=== PATIENT | female | born 1940 | race Caucasian/White ===

== ENCOUNTER 2019-04-16 10:41 | Outpatient (CLI) | payer MEDICARE, MEDICAID, SELFPAY ==
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
== END 2019-04-16 10:42 | disposition home or self-care (01) ==
LOC: RADOUTREAD 12:30
PROVIDERS: Family Provider Electrodiagnostic Medicine; Visit Provider Nurse Practitioner Family
DX: Z76.89 Persons encountering health services in other specified circumstances (principal)

== ENCOUNTER 2019-05-01 16:26 | Emergency (ER) | payer MEDICARE, MEDICAID, SELFPAY ==
[2019-05-01 16:33] VITALS: BP 144/105; PULSE 89; RESP 16; TEMP 36.3; O2SAT 98; BMI 23.8
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
--- NOTE | 2019-05-01 16:46 | ECG_ITS ---
Measurements Intervals [place] Rate: 79 P: 64 TX: 196 QRS: 21 QRSD: 93 T: 62 QT: 371 QTc: 425 SINUS RHYTHM WITH SINUS ARRHYTHMIA Compared to ECG 08/06/2018 12:14:23 No significant changes Electronically Signed On 05-01-2019 22:17:25 SPEEDER MACHINE OPERATOR by Rajesh Stern M.D. [id number]
[2019-05-01 17:22] LABS: Basophils % 0.3 %; Eosinophils # 0.4 10^3/uL (0.0-0.8); Eosinophils % 4.5 %; Hemoglobin 14.5 g/dL (11.5-15.3); Lymphocytes % 25.3 %; Mean Corpuscular HGB Conc 32.2 g/dL (30.0-36.0); Mean Corpuscular Hemoglobin 30.2 pg (28.0-34.0); Mean Corpuscular Volume 93.8 fL (81-99); Mean Platelet Volume 10.1 fL (7.4-10.4); Monocytes # 0.6 10^3/uL (0.2-0.9); Monocytes % 7.4 %; Neutrophils # 4.9 10^3/uL (1.8-7.7); Neutrophils % 62.1 %; Nucleated Red Blood Cells % 0 %; Platelet Count 236 10^3/cmm (130-400); Red Cell Distribution Width 13.9 % (12.1-15.1); White Blood Count 7.9 10^3/uL (4.0-10.0)
[2019-05-01 17:23] LABS: Add Urine Microscopic? NO
[2019-05-01 17:25] LABS: Urine Appearance Clear (CLEAR); Urine Color Yellow (Yellow); pH Urine 5 (5-7)
[2019-05-01 17:26] LABS: Bilirubin Urine Neg (NEGATIVE); Blood Urine Neg (Negative); Glucose Urine UA Norm (Normal); Ketones Urine Negative (Negative); Leukocyte Esterase Urine Negative (Negative); Nitrate Urine Negative (Negative); Protein Urine Neg (Negative); Urobilinogen Urine Norm (Negative)
[2019-05-01 17:40] LABS: Amphetamines Screen Urine Negative (Negative); Barbiturates Screen Urine Negative (Negative); Benzodiazepines Screen Urine Negative (Negative); Cocaine Screen Urine Negative (Negative); Opiate Screen Urine Negative (Negative); PCP Screen Urine Negative (Negative); THC Screen Urine Negative (Negative)
[2019-05-01 17:50] LABS: Lithium 0.1 mmol/L (0.6-1.2)
--- NOTE | 2019-05-01 17:53 | PC.NURSE ---
1:1 sitter at bedside
[2019-05-01 18:01] LABS: Alanine Aminotransferase 22 U/L (0-33); Albumin Level 4.3 g/dL (3.5-5.2); Alkaline Phosphatase 128 IU/L (35-105); Anion Gap 13.2 (5-19); Aspartate Amino Transferase 29 U/L (0-32); Blood Urea Nitrogen 18 mg/dL (8-23); Calcium 10.1 mg/dL (8.5-10.5); Carbon Dioxide 26 mmol/L (22-29); Chloride 108 mmol/L (98-107); Globulin 2.8 g/dL (1.3-4.6); Glucose 109 mg/dL (65-115); Potassium 4.2 mmol/L (3.5-5.1); Sodium 143 mmol/L (136-145); Thyroid Stimulating Hormone 2.46 uIU/mL (0.27-4.20); Total Bilirubin 0.2 mg/dL (0.15-1.2); Total Protein 7.1 g/dL (6.6-8.7)
[2019-05-01 18:22] LABS: Acetaminophen < 5.0 ug/mL (10-30); Alcohol Level < 10 mg/dL (0-10); Salicylate < 0.3 mg/dL (3-10)
[2019-05-01 19:40] VITALS: BP 139/106; PULSE 90; RESP 18; O2SAT 94
--- NOTE | 2019-05-01 19:47 | PC.NURSE ---
Patient resting in bed with daughter at bedside. 1:1 sitter at bedside.
--- NOTE | 2019-05-01 20:06 | PC.NURSE ---
Patient sleeping. Daughter and 1:1 sitter at bedside.
[2019-05-01 21:01] VITALS: BP 118/68; PULSE 90; RESP 18; TEMP 36.2; O2SAT 98
[2019-05-01 21:19] LABS: Vitamin B12 598 pg/mL (232-1245)
--- NOTE | 2019-05-01 21:53 | PC.NURSE ---
Calling [facility] ems for transport at this time.
[2019-05-01 22:00] VITALS: BP 113/73; PULSE 85; RESP 18; O2SAT 94
== END 2019-05-01 23:13 ==
PROVIDERS: Emergency Provider Emergency Medicine; Family Provider Electrodiagnostic Medicine
DX: F31.9 Bipolar disorder, unspecified (principal); Z85.41 Personal history of malignant neoplasm of cervix uteri; J44.9 Chronic obstructive pulmonary disease, unspecified; E78.5 Hyperlipidemia, unspecified; F17.210 Nicotine dependence, cigarettes, uncomplicated
CPT/HCPCS: 36415; 80053; 80178; 80307; 81003; 82607; 84443; 85025; 93005; 99284; 99285

== ENCOUNTER 2019-05-14 15:33 | Outpatient (CLI) | payer MEDICARE, MEDICAID, SELFPAY ==
--- NOTE | 2019-05-14 15:53 | CT_ITS ---
WS: [id number] CT RIGHT KNEE, NONCONTRAST HISTORY: RT KNEE JOINT PAIN Technique: All CT scans at [facility] use at least one of these dose optimization techniq ues: automated exposure control; mA and/or kV adjustment per patient size (includes targeted exams wh ere dose is matched to clinical indication); or iterative reconstruction. DLP: 1175.49 mGy-cm. COMPARISON: RIGHT knee radiograph 04/16/2019 Bones are osteopenic. No acute fracture line is identified involving the tibial plateau. There is a l ucency in the medial tibial plateau but no fracture. May be a focal area of osteopenia. The cortex ap pears to be intact. Patella is in normal position. Mild soft tissue edema surrounding the knee and a moderate suprapatellar joint effusion. There is als o a moderate-sized Miller's cyst. CT/CT knee RT wo con* [id number] IMPRESSION: 1. Osteopenia. No fracture identified. Cortex is intact over the medial tibial plateau. 2. Moderate-sized joint effusion. 3. Moderate-sized Miller's cyst. 4. Soft tissue edema.
== END 2019-05-14 15:34 | disposition home or self-care (01) ==
LOC: RADWPI 15:39
PROVIDERS: Family Provider Electrodiagnostic Medicine; PCP Nurse Practitioner Family; Visit Provider Nurse Practitioner Family
DX: M25.461 Effusion, right knee (principal); M71.21 Synovial cyst of popliteal space [Baker], right knee; M85.88 Other specified disorders of bone density and structure, other site
CPT/HCPCS: 73700

== ENCOUNTER 2019-05-25 | Outpatient (RCR) | payer MEDICARE, SELFPAY | END 2019-05-26 | disposition home or self-care (01) | LOC: SPT | PROVIDERS: Family Provider Electrodiagnostic Medicine; PCP Nurse Practitioner Family; Referring Provider Nurse Practitioner Family; Visit Provider Nurse Practitioner Family | DX: I89.0 Lymphedema, not elsewhere classified (principal) | CPT/HCPCS: 97161 ==

== ENCOUNTER 2021-02-14 16:03 | Outpatient (CLI) | payer MEDICARE, MEDICAID, SELFPAY ==
--- NOTE | 2021-02-14 | CT_ITS ---
WS: [id number] CT HEAD TECHNIQUE: Noncontrast CT of the head obtained from the skullbase to the vertex. CLINICAL INFORMATION: DIZZINESS COMPARISON: CT August 06, 2018 DLP: 2592.[address] scans at [facility] use at least one of these dose optimization techniques: automated e xposure control; mA and/or kV adjustment per patient size (includes targeted exams where dose is matc hed to clinical indication); or iterative reconstruction. FINDINGS: No evidence of intracranial hemorrhage or mass effect. Ventricular system and basal cisterns are hamilton nt. Moderate small vessel changes with moderate parenchymal volume loss. No extra-axial fluid collect ions. No evidence of mass or mass effect. Normal bower-white differentiation. Paranasal sinuses and mastoid air cells are well aerated. .Normal visualized soft tissues. CT/CT head wo con* [id number] IMPRESSION: 1. No evidence of intracranial hemorrhage or mass effect. 2. Moderate small vessel changes with moderate parenchymal volume loss. 3. No acute intracranial findings and no changes from previous 2019.
== END 2021-02-14 16:04 | disposition home or self-care (01) ==
PROVIDERS: PCP Nurse Practitioner Family; Visit Provider Nurse Practitioner Family
DX: R42 Dizziness and giddiness (principal)
CPT/HCPCS: 70450

== ENCOUNTER 2021-03-06 10:41 | Outpatient (CLI) | payer MEDICARE, MEDICAID, SELFPAY ==
[2021-03-06 10:45] VITALS: BMI 25.6
[2021-03-06 10:50] VITALS: BP 117/85; PULSE 84; RESP 20; TEMP 36.4; O2SAT 95
[2021-03-06 11:27] VITALS: BP 116/83; PULSE 76; RESP 18; TEMP 36.3; O2SAT 97
[2021-03-06 12:26] VITALS: BP 124/81; PULSE 75; RESP 16; TEMP 36.9; O2SAT 97
== END 2021-03-06 10:42 | disposition home or self-care (01) ==
LOC: OPS 10:44
PROVIDERS: PCP Nurse Practitioner Family; Visit Provider Nurse Practitioner Family
DX: U07.1 COVID-19 (principal)
CPT/HCPCS: 96365

== ENCOUNTER → 2021-07-17 11:24 | Outpatient (BNVA) | payer MEDICARE, MEDICAID, SELFPAY | PROVIDERS: PCP Nurse Practitioner Family; Visit Provider Internal Medicine Cardiovascular Disease | DX: R55 Syncope and collapse (principal); I49.3 Ventricular premature depolarization; I49.1 Atrial premature depolarization | CPT/HCPCS: 93225; 93226 ==

== ENCOUNTER 2021-08-03 10:00 | Outpatient (CLI) | payer MEDICARE, MEDICAID, SELFPAY ==
--- NOTE | 2021-08-03 10:12 | USCV_ITS ---
Maxine Sanford Age: 81 Gender: F : 1940 Exam Date: 08/03/2021 10:45 Ordering Phys: Daria Colindres [employer] FEEDER [employer]EDER Technologist: KAMALJIT Exam Location: [facility] [place] Indication: SYNCOPE- COLLAPSE BP: 140 / 60 HR: 74 Rhythm: Sinus Technical Quality: Poor secondary to COPD MEASUREMENTS (Male / Female) Normal Values 2D ECHO LV Diastolic Diameter PLAX 3.5 cm 4.2 - 5.9 / 3.9 - 5.3 cm LV Systolic Diameter PLAX 2.3 cm IVS Diastolic Thickness 1.4 cm 0.6 - 1.0 / 0.6 - 0.9 cm IVS Systolic Thickness 2.2 cm LVPW Diastolic Thickness 1.2 cm 0.6 - 1.0 / 0.6 - 0.9 cm LVPW Systolic Thickness 1.7 cm LVOT Diameter 2.0 cm LV Ejection Fraction 2D Teich 64.2 % LV Ejection Fraction MOD 2C 67.1 % LV Ejection Fraction 2C AL 66.7 % LA Diameter 2.2 cm LA Width 2.7 cm LA Height 2.0 cm RA Width 3.0 cm RA Height 2.3 cm Aorta at Sinotubular Diameter 1.8 cm IVC Diameter 1.3 cm M-MODE Aortic Annulus Diameter 3.1 cm LA Ao Ratio MM 0.6 DOPPLER AV Peak Velocity 147.3 cm/s LVOT Peak Velocity 113.0 cm/s AV Area Cont Eq vti 2.7 cm squared AV Area Cont Eq pk 2.4 cm squared MV Peak Velocity 100.0 cm/s MV Area PHT 5.0 cm squared Mitral E to A Ratio 0.7 MV E' Velocity 33.5 cm/s Mitral E to MV E' Ratio 7.4 Mitral E to LV E' Lateral Ratio 7.3 Mitral E to LV E' Septal Ratio 7.5 TR Peak Velocity 117.6 cm/s TR Peak Gradient 5.5 mmHg TR Mean Velocity 76.3 cm/s TR Mean Gradient 2.7 mmHg TR Velocity Time Integral 18.8 cm TV Peak E Velocity 50.0 cm/s Right Atrial Pressure 3.0 mmHg Pulmonary Artery Systolic Pressu 8.5 mmHg FINDINGS Left Ventricle Normal left ventricular size. LV systolic function is normal with EF of 55-60%. Septal motion is consistent with conduction abnormalities. Grade 1 diastolic dysfunction Right Ventricle The right ventricle is normal in size and function. Right Atrium The right atrium is normal in size. Left Atrium The left atrium is normal in size. Mitral Valve Structurally normal mitral valve without significant stenosis or prolapse. There is mild mitral regurgitation. Aortic Valve Structurally normal aortic valve without significant sclerosis or stenosis. There is no aortic regurgitation. Tricuspid Valve Structurally normal tricuspid valve without significant stenosis. Mild tricuspid regurgitation. Pulmonary artery systolic pressure is normal. Pulmonic Valve Grossly normal Pericardium Normal pericardium without effusion. Aorta Normal ascending aorta dimension. IVC CONCLUSIONS Technically limited quality echocardiogram because of poor ultrasonic windows. LV systolic function is normla with EF of 55-60%. Septal motion is consistent with conduction abnormalities. Grade 1 diastolic dysfunction Mild mitral regurgitation Mild tricuspid regurgtation No comparison studies are available José Alejandro MD (Electronically Signed) Final Date: 12 Aug 2021 11:49 S
== END 2021-08-03 10:01 | disposition home or self-care (01) ==
LOC: RAD 10:04
PROVIDERS: PCP Nurse Practitioner Family; Visit Provider Nurse Practitioner Family
DX: R55 Syncope and collapse (principal); I34.0 Nonrheumatic mitral (valve) insufficiency; I07.1 Rheumatic tricuspid insufficiency; R94.39 Abnormal result of other cardiovascular function study
CPT/HCPCS: 93306

== ENCOUNTER → 2021-09-20 12:56 | Outpatient (BNVA) | payer MEDICARE, MEDICAID, SELFPAY | PROVIDERS: PCP Nurse Practitioner Family; Visit Provider Internal Medicine | DX: R55 Syncope and collapse (principal); I95.1 Orthostatic hypotension; F17.200 Nicotine dependence, unspecified, uncomplicated | CPT/HCPCS: 93005; 99203; 99204 ==

== ENCOUNTER 2021-10-02 15:54 | Emergency (ER) | payer MEDICARE, MEDICAID, SELFPAY ==
[2021-10-02 16:02] VITALS: PULSE 67; RESP 20; TEMP 36.6; BMI 25.2
--- NOTE | 2021-10-02 16:29 | XRR_ITS ---
PROCEDURE INFORMATION: Exam: XR Left Tibia and Fibula Exam date and time: 10/02/2021 4:55 PM Age: 81 years old Clinical indication: Pain; Left; Patient HX: Skin tear lt. Lower leg; Additional info: Fall/pain TECHNIQUE: Imaging protocol: Radiologic exam of the Left tibia and fibula. Views: 2 views. COMPARISON: No relevant prior studies available. FINDINGS: Bones/joints: The bones appear intact and in normal alignment. Soft tissues: Large laceration in the lateral calf with soft tissue gas. No visible radiopaque foreign body. XR/XR tibia fibula LT 2V [id number] IMPRESSION: No acute skeletal finding.
--- NOTE | 2021-10-02 16:33 | XRR_ITS ---
PROCEDURE INFORMATION: Exam: XR Left Hip Exam date and time: 10/02/2021 4:55 PM Age: 81 years old Clinical indication: Hip pain; Left hip; Additional info: Fall/pain TECHNIQUE: Imaging protocol: Radiologic exam of the Left hip. Views: 2 or 3 views hip with pelvis when performed. COMPARISON: [place] [id number] 08/06/2018 11:56 AM FINDINGS: Bones/joints: Cortical irregularity in the inferior left pubic ramus, which is age indeterminate. The other bones appear intact and in normal alignment. Soft tissues: Unremarkable. Organs: Calcified uterine fibroid. XR/XR hip LT 2-3V wo/w pel* [id number] IMPRESSION: 1. No left hip fracture identified. 2. Age indeterminate fracture in the inferior left pubic ramus.
--- NOTE | 2021-10-02 16:55 | ED_ITS ---
HPI - Fall General: Chief Complaint: Fall Stated Complaint: FALL/ SKIN TEARS Time Seen by Provider: 10/02/21 16:02 Source: patient Mode of arrival: EMS Limitations: no limitations History of Present Illness: 81-year-old female presents to the emergency room after slipping and falling in the bathroom she caught her leg on the walker and she has a very large skin tear on the left lower leg anteriorly and on the left upper arm. She did strike her head she has little bit of neck discomfort she did not lose consciousness she is not on any anticoagulants she denies any other injuries. MD complaint: fall Onset (ago): minute(s) Fall from: standing Fall witnessed: yes, by family Place fall occurred: home Loss of consciousness: None Prolonged down time: no Context: tripped/slipped Location of injury - extremities: Left: arm, elbow and lower leg Severity: moderate Associated symptoms-after fall: Denies abdominal pain, chest pain, confusion, difficulty walking, headache(s), hematuria, lightheadedness, neck pain, numbness, short of breath, vertigo or weakness Review of Systems Const: Denies: fever(s), chills, body aches, change in appetite, fatigue or malaise ENMT: Denies: throat pain, ear or mastoid pain, nasal discharge or nasal congestion Card: Denies: chest pain, edema, lightheadedness, dyspnea on exertion or orthopnea Resp: Denies: dyspnea, productive cough or non-productive cough GI: Denies: abdominal pain, nausea, vomiting, hematemesis, coffee ground emesis, diarrhea, constipation, bloating, hematochezia or melena : Denies: flank pain, difficulty voiding, dysuria, urinary frequency, urinary urgency or hematuria Musc: Denies: neck pain Skin/Breast: Denies: rash or pruritus Neuro: Denies: headache(s), difficulty walking, vertigo or confusion PFSH ED PFSH: Medical History Bipolar disorder Cervical cancer COPD (chronic obstructive pulmonary disease) Hyperlipidemia Social History Smoking and tobacco status: current every day smoker Physical Exam Const: GENERAL APPEARANCE: cooperative and comfortable ORIENTATION/CONSCIOUSNESS: Yes awake, Yes oriented to person, Yes oriented to place and Yes oriented to time HENMT: COMMON NORMALS: normocephalic, atraumatic, hearing grossly normal bi laterally, external ears normal, EAC's normal, TM's normal bilaterally, Normal nasal mucous membranes and turbinates present, moist oral mucous membranes and oropharynx normal HEAD & SCALP: normocephalic and atraumatic NOSE: Normal nasal mucous membranes and turbinates present EXTERNAL EAR: Yes external ears normal EXTERNAL AUDITORY CANAL: EAC's normal TYMPANIC MEMBRANE: TM's normal bilaterally Eye: COMMON NORMALS: Equal, round and reactive pupils present, EOMs intact bilaterally, conjunctivae normal and no scleral icterus CONJUNCTIVA: Yes conjunctivae normal PUPIL: Yes Equal, round and reactive pupils present Neck/C-Spine: COMMON NORMALS: full ROM, no lymphadenopathy, supple and no JVD Resp: COMMON NORMALS: normal respiratory effort, No retractions, No use of accessory muscles and clear to auscultation bilaterally AUSCULTATION: clear to auscultation bilaterally Cardio: COMMON NORMALS: no JVD, regular rate, regular rhythm and No murmurs present (Cardio) RATE: regular rate RHYTHM: regular rhythm GI: COMMON NORMALS: Soft to palpation and No hepatosplenomegaly present AUSCULTATION: Yes normoactive bowel sounds PALPATION: Yes Soft to palpation, No Tenderness to palpation present (GI), No Guarding due to palpation present (GI) and Yes No hepatosplenomegaly present Extremity: COMMON NORMALS: capillary refill normal, no clubbing, cyanosis or edema, no calf tenderness and no pedal edema OTHER: See diagram for location and appearance of laceration EXTREMITY IMAGE (FRONT): 1. Neuro: SENSORIUM/ORIENTATION: Yes oriented to person, Yes oriented to place and Yes oriented to time Skin: OTHER: Significant skin tear on the left elbow all superficial. Large skin flap laceration on the anterior tibia left lower leg with exposure of subcu tissue some of the edges are devascularized see laceration repair note. Procedures Laceration Laceration 1: Site: lower extremity (Anterior tibia) Side (If applicable): left Size (cm): 30 Description: flap Depth: simple, single layer Pre-repair: irrigated extensively and deep structures intact Skin layer closed with: nylon Size (cm): 3-0 Technique: simple, interrupted (3 interrupted sutures used to position flap.) and running (Single running suture on each side of the apex of the flap used to close the 2 length of the flap) Procedural Sedation Preparation: manager monitoring applied, pulse oximeter, supplemental O2 applied, suction/airway equipment at bedside and IV secured Midazolam: IV Midazolam dose (mg): 5 Patient Tolerated Procedure: well Complications: none Course Vital Signs: Vital signs: Vital Signs Temperature 97.9 F 10/02/21 16:02 Pulse Rate 66 10/02/21 19:58 Respiratory Rate 16 10/02/21 19:58 Blood Pressure 118/76 10/02/21 19:58 Pulse Oximetry 95 10/02/21 19:58 MDM - Fall Medical Decision Making Wound care instructions given suture removal in 10 to 14 days apply topical antibiotic ointment to wound edges follow-up as needed return if has any signs of infection. Medical Records I reviewed the patient's medical records. Lab Data I reviewed the patient's lab results. Radiology Impressions Tibia/Fibula X-Ray 10/02/21 16:29 IMPRESSION: No acute skeletal finding. Hip/Pelvis X-Ray 10/02/21 16:33 IMPRESSION: 1. No left hip fracture identified. 2. Age indeterminate fracture in the inferior left pubic ramus. Discharge Plan Discharge Patient Disposition: Home Clinical Impression: Fall, Laceration of leg Condition: Stable Prescriptions: No Action ziprasidone HCl 40 mg capsule 40 mg PO BID 0RF Rx Instructions: give with food (meal/snack) tolterodine 4 mg capsule,extended release 24hr 4 mg PO DAILY 0RF carbamazepine 300 mg capsule, ER multiphase 12 hr 300 mg PO BID 0RF montelukast 10 mg tablet 10 mg PO DAILY 0RF trazodone 50 mg tablet 50 mg PO DAILY 0RF duloxetine 30 mg capsule,delayed release(DR/EC) 30 mg PO DAILY 0RF Benadryl 25 mg Capsule 25 mg PO QPM 0RF Euthyrox 125 mcg Tablet 125 mcg PO DAILY 0RF Advair HFA 230-21 mcg/actuation HFA aerosol inhaler 2 puff INHALATION DAILY PRN (Reason: Shortness Of Breath) 0RF Discharge Orders: Discharge ED (Routine); Ordered 10/02/21 Ordered By: Zohaib Valdovinos Referrals: Daria Colindres FNP [Primary Care Provider] - Activity Restrictions/Additional Instructions: real estate operations manager will make arrangements for follow-up in the wound care clinic sutures should be removed in 10 to 14 days Coding Level of Care Code ED Intervention Teacher for Chg Fwd Exam Comprehensive
[2021-10-02] MEDS: midazolam 1 mg/mL INJ 2 mL 5 MG IVP (17:20)
[2021-10-02] MEDS: neomycin-poly-bacitracin oint 28 gm 1 APPLIC TOPICAL (18:44)
[2021-10-02 19:58] VITALS: BP 118/76; PULSE 66; RESP 16; O2SAT 95
--- NOTE | 2021-10-16 08:12 | DCPLANNER ---
Addendum entered by Lulu Avila 11/14/21 16:06: Patient had a follow up appointment scheduled with Wound Care - patient did attend appointment. Addendum entered by Lulu Avila 10/19/21 09:33: Patient has a follow up appointment scheduled for Saturday, October 25, 2021 at 9:15 at [facility] Care. Clinic will call patient with appointment information. Original Note: credit relationship manager was asked to refer patient to [facility] Care for follow up. credit relationship manager sent patients information to the front office staff at [facility]. Patients information will be printed and reviewed. Clinic will call patient with appointment information.
== END 2021-10-02 20:01 | disposition home or self-care (01) ==
PROVIDERS: Emergency Provider Family Medicine; PCP Nurse Practitioner Family
DX: S81.812A Laceration without foreign body, left lower leg, initial encounter (principal); W01.198A Fall on same level from slipping, tripping and stumbling with subsequent striking against other object, initial encounter; J44.9 Chronic obstructive pulmonary disease, unspecified; E78.5 Hyperlipidemia, unspecified; Z85.41 Personal history of malignant neoplasm of cervix uteri; F17.210 Nicotine dependence, cigarettes, uncomplicated
CPT/HCPCS: 12006; 73502; 73590; 96374; 99284; J2250; J3490

== ENCOUNTER → 2021-10-18 08:13 | Outpatient (BNVA) | payer MEDICARE, MEDICAID, SELFPAY | PROVIDERS: PCP Nurse Practitioner Family; Visit Provider Nurse Practitioner Family | DX: I96 Gangrene, not elsewhere classified (principal); L98.492 Non-pressure chronic ulcer of skin of other sites with fat layer exposed; L97.822 Non-pressure chronic ulcer of other part of left lower leg with fat layer exposed | CPT/HCPCS: 97597; 97598; 99203; 99213 ==

== ENCOUNTER → 2021-10-25 09:00 | Outpatient (BNVA) | payer MEDICARE, MEDICAID, SELFPAY | PROVIDERS: PCP Nurse Practitioner Family; Visit Provider Nurse Practitioner Family | DX: I96 Gangrene, not elsewhere classified (principal); L98.492 Non-pressure chronic ulcer of skin of other sites with fat layer exposed; L97.922 Non-pressure chronic ulcer of unspecified part of left lower leg with fat layer exposed | CPT/HCPCS: 11042; 11045 ==

== ENCOUNTER → 2021-11-01 09:20 | Outpatient (BNVA) | payer MEDICARE, MEDICAID, SELFPAY | PROVIDERS: PCP Nurse Practitioner Family; Visit Provider Thoracic Surgery (Cardiothoracic Vascular Surgery) | DX: I96 Gangrene, not elsewhere classified (principal); L98.492 Non-pressure chronic ulcer of skin of other sites with fat layer exposed; L97.822 Non-pressure chronic ulcer of other part of left lower leg with fat layer exposed | CPT/HCPCS: 11042; 97597; 97598; A6021 ==

== ENCOUNTER → 2021-11-08 09:50 | Outpatient (BNVA) | payer MEDICARE, MEDICAID, SELFPAY | PROVIDERS: PCP Nurse Practitioner Family; Visit Provider Thoracic Surgery (Cardiothoracic Vascular Surgery) | DX: I96 Gangrene, not elsewhere classified (principal); L98.492 Non-pressure chronic ulcer of skin of other sites with fat layer exposed; L97.822 Non-pressure chronic ulcer of other part of left lower leg with fat layer exposed | CPT/HCPCS: 11042; 97597; A6021 ==

== ENCOUNTER 2021-11-15 | Outpatient (CLI) | payer MEDICARE, MEDICAID, SELFPAY | END 2021-11-15 23:00 | disposition home or self-care (01) | LOC: RAD 01-23 01:02 | PROVIDERS: PCP Nurse Practitioner Family; Visit Provider Internal Medicine | DX: I96 Gangrene, not elsewhere classified (principal); L98.492 Non-pressure chronic ulcer of skin of other sites with fat layer exposed; L97.822 Non-pressure chronic ulcer of other part of left lower leg with fat layer exposed | CPT/HCPCS: 15271; 97597; A6206; A6250; Q4172; Q4196 ==

== ENCOUNTER → 2021-11-22 09:20 | Outpatient (BNVA) | payer MEDICARE, MEDICAID, SELFPAY | PROVIDERS: PCP Nurse Practitioner Family; Visit Provider Thoracic Surgery (Cardiothoracic Vascular Surgery) | DX: I96 Gangrene, not elsewhere classified (principal); L98.492 Non-pressure chronic ulcer of skin of other sites with fat layer exposed; L97.822 Non-pressure chronic ulcer of other part of left lower leg with fat layer exposed | CPT/HCPCS: 15271; 97597; Q4172; Q4196 ==

== ENCOUNTER → 2021-11-29 13:03 | Outpatient (BNVA) | payer MEDICARE, MEDICAID, SELFPAY | PROVIDERS: PCP Nurse Practitioner Family; Visit Provider Thoracic Surgery (Cardiothoracic Vascular Surgery) | DX: I96 Gangrene, not elsewhere classified (principal); L98.492 Non-pressure chronic ulcer of skin of other sites with fat layer exposed; L97.822 Non-pressure chronic ulcer of other part of left lower leg with fat layer exposed | CPT/HCPCS: 15271; 97597; A6021; A6206; A6212; A6250; Q4196 ==

== ENCOUNTER → 2021-12-19 13:04 | Outpatient (BNVA) | payer MEDICARE, MEDICAID, SELFPAY | PROVIDERS: PCP Nurse Practitioner Family; Visit Provider Internal Medicine | DX: I95.1 Orthostatic hypotension (principal); F17.200 Nicotine dependence, unspecified, uncomplicated | CPT/HCPCS: 99214 ==

== ENCOUNTER → 2021-12-20 10:00 | Outpatient (BNVA) | payer MEDICARE, MEDICAID, SELFPAY | PROVIDERS: PCP Nurse Practitioner Family; Visit Provider Thoracic Surgery (Cardiothoracic Vascular Surgery) | DX: Z09 Encounter for follow-up examination after completed treatment for conditions other than malignant neoplasm (principal) | CPT/HCPCS: 99212 ==

== ENCOUNTER 2022-01-05 09:30 | Outpatient (CLI) | payer MEDICARE, MEDICAID, SELFPAY ==
--- NOTE | 2022-01-05 | ECG_ITS ---
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 Interpretive Statements NAME OF STUDY: LEXISCAN SESTAMIBI STRESS TEST INDICATION: [snycope, ] Procedure: At the baseline, the blood pressure was 121/89 mmHg with a heart rate of 61 bpm. The electrocardiogram showed normal sinus rhythm,interventricular conduction delay, normal axis with normal ST and T's. The Lexiscan was infused over a period of 20 seconds. A total of 0.4 mg of Lexiscan was infused. The stress phase was continued for a total of 5 minutes. Heart rate was at the end of stress phase was 90 bpm and a blood pressure of 102/62 mmHg. The EKG at the peak infusion revealed normal sinus rhythm with no significant ST-T wave changes. Sestamibi was injected 20 seconds after the Lexiscan infusion. Blood pressure at the end of recovery phase was 120/79 mmHg with a heart rate of 85 bpm. Conclusion: 1. Normal EKG response to Lexiscan infusion 2. No Lexiscan induced chest pain or cardiac arrhythmia. 3. Normal blood pressure and heart rate response. 4. Sestamibi/sestamibi perfusion scan pending; see separate report. Electronically Signed On 01-11-2022 11:34:59 CDT by José Alejandro M.D. [email or web address]
[2022-01-05 10:05] VITALS: BMI 25.6
--- NOTE | 2022-01-05 10:05 | NMCV_ITS ---
NM elvira perf SPECT r/s* [id number] Maxine Sanford Age: 81 Gender: F : 1940 Exam Date: 01/05/2022 10:56 Ordering Phys: José Alejandro M.D ([email or web address]) Technologist: JAVIER Campos Exam Location: [facility] Indications: ORTHOSTATIC HYPOTENSION STRESS TEST Please see separate stress test report in [facility] for full findings IMAGE PROTOCOL Rest/Stress 1 Lexiscan Day Radiopharmaceutical Dose (mCi) Administration Site Administered by Rest: Tc-99m 10.6 IV JAVIER Arauz Sestamibi Stress:Tc-99m 32.9 IV JAVIER Arauz Sestamibi Rest: 05-Jan-2022 60 Discovery 630 Stress: 05-Jan-2022 30 Discovery 630 0.4mg Lexiscan. Supine position only as patient was unable to lay prone. SPECT RESULTS Technical Quality: Excellent Raw Data Analysis: Normal Image Corrections: No attenuation or motion correction applied Summed Stress Score: 5 Summed Rest Score: 12 Summed Difference Score: 0 PERFUSION FINDINGS There is a medium sized, fixed perfusion defect noted in apical,apical inferior and apical septal alicea. 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 IMPRESSIONS 1. 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 No evidence of ischemia 2. LV systolic function is normal. José Alejandro MD (Electronically Signed) Final Date: 06 January 2022 19:54 S
[2022-01-05] MEDS: regadenoson 0.4 Mg/5 ml Syringe IVP (11:40)
[2022-01-05 11:49] VITALS: BP 111/72; PULSE 85
== END 2022-01-05 09:31 | disposition home or self-care (01) ==
LOC: CDL 09:34
PROVIDERS: PCP Nurse Practitioner Family; Visit Provider Internal Medicine
DX: I96 Gangrene, not elsewhere classified (principal); L98.492 Non-pressure chronic ulcer of skin of other sites with fat layer exposed; L97.822 Non-pressure chronic ulcer of other part of left lower leg with fat layer exposed; R55 Syncope and collapse; I95.9 Hypotension, unspecified; R94.39 Abnormal result of other cardiovascular function study
CPT/HCPCS: 11042; 78452; 93017; A9500; J2785

== ENCOUNTER 2022-03-09 03:44 | Emergency (ER) | payer MEDICARE, MEDICAID, SELFPAY ==
[2022-03-09 03:47] VITALS: BP 117/75; PULSE 70; RESP 18; TEMP 36.5; O2SAT 95; BMI 25.6
--- NOTE | 2022-03-09 03:48 | CTR_ITS ---
PROCEDURE INFORMATION: Exam: CT Head Without Contrast Exam date and time: 03/09/2022 3:56 AM Age: 81 years old Clinical indication: Injury or trauma; Fall; Blunt trauma (contusions or hematomas); Patient HX: Patient tripped and fell against door frame at home and then fell to floor. C/O head and neck pain. Hematoma to RT eyebrow. TECHNIQUE: Imaging protocol: Computed tomography of the head without contrast. Radiation optimization: All CT scans at this facility use at least one of these dose optimization techniques: automated exposure control; mA and/or kV adjustment per patient size (includes targeted exams where dose is matched to clinical indication); or iterative reconstruction. COMPARISON: CT head wo con* [id number] 02/14/2021 4:12 PM RADIATION DOSE METRICS: Total DLP (mGy-cm): 994.28 FINDINGS: Brain: There is mild parenchymal atrophy and chronic small vessel disease. No cerebral/cerebellar infarct. No brain parenchymal or extra-axial hemorrhage. 2.3 cm lesion of the right temporal lobe which could be metastatic. Consider further evaluation MRI. Cerebral ventricles: No ventriculomegaly. Paranasal sinuses: There are fractures of the anterior and lateral alicea of the right maxillary sinus. Mastoid air cells: Visualized mastoid air cells are clear. Orbital cavities: Nondisplaced fracture of the floor of the right orbit. Nondisplaced fracture of the lateral wall of the right orbit. Bones/joints: There is a fracture of the right zygomatic arch. No calvarial or skull base fracture. Soft tissues: Unremarkable. CT/CT head wo con* [id number] IMPRESSION: 1. No acute infarct or hemorrhage. 2. No calvarial or skull base fracture. 3. Mild parenchymal atrophy and chronic small vessel disease. 4. 2.3 cm lesion of the right temporal lobe which could be metastatic. Consider further evaluation MRI. 5. There is a fracture of the right zygomatic arch. 6. There are fractures of the anterior and lateral alicea of the right maxillary sinus. 7. Nondisplaced fracture of the floor of the right orbit. 8. Nondisplaced fracture of the lateral wall of the right orbit.
--- NOTE | 2022-03-09 03:48 | CTR_ITS ---
PROCEDURE INFORMATION: Exam: CT Cervical Spine Without Contrast Exam date and time: 03/09/2022 4:01 AM Age: 81 years old Clinical indication: Injury or trauma; Fall; Blunt trauma; Patient HX: Patient tripped and fell against door frame at home and then fell to floor. C/O head and neck pain. Hematoma to RT eyebrow. TECHNIQUE: Imaging protocol: Computed tomography of the cervical spine without contrast. Radiation optimization: All CT scans at this facility use at least one of these dose optimization techniques: automated exposure control; mA and/or kV adjustment per patient size (includes targeted exams where dose is matched to clinical indication); or iterative reconstruction. COMPARISON: CT cervical spin wo con* [id number] 08/06/2018 11:50 AM RADIATION DOSE METRICS: Total DLP (mGy-cm): 128.77 FINDINGS: Bones/joints: Craniocervical articulation is normal. The dens is intact. The lateral masses of C1 are symmetric. There are normal vertebral body heights. There is normal vertebral body alignment. Severe intervertebral disc space narrowing at C5-C6 and C6-C7. No cervical spine fracture. Paranasal sinuses: Right maxillary sinus fractures described on head CT. Lungs: Lung apices are normal. Soft tissues: Unremarkable. CT/CT cervical spin wo con* [id number] IMPRESSION: No cervical spine fracture.
--- NOTE | 2022-03-09 03:49 | ED_ITS ---
HPI - Fall General: Chief Complaint: Fall Stated Complaint: FALL Time Seen by Provider: 03/09/22 03:48 Source: patient and EMS Mode of arrival: EMS Limitations: no limitations History of Present Illness: 81-year-old female who states she had gotten up tonight to go to the bathroom she states she tripped fell into the door this happened just prior arrival she had her head she does have a hematoma to her right forehead she is unsure if she had a loss conscious she does have a headache and some mild neck pain she also has skin tears to her right arm denies any right arm pain. Associated symptoms-after fall: Reports headache(s); Denies abdominal pain, chest pain or neck pain Review of Systems Const: Denies: fever(s), chills, body aches or change in appetite Eyes: Denies: blurry vision or eye discomfort ENMT: Denies: throat pain or dental pain Card: Denies: chest pain Resp: Denies: dyspnea GI: Denies: abdominal pain, nausea, vomiting or diarrhea : Denies: dysuria Musc: Denies: neck pain or back pain Skin/Breast: Denies: rash Neuro: Reports: headache(s) Psych: Denies: depression Donavan/Lymph: Denies: easy bruising All/Imm: Denies: urticaria PFSH ED PFSH: Medical History Bipolar disorder Cervical cancer COPD (chronic obstructive pulmonary disease) Hyperlipidemia Social History Smoking and tobacco status: current every day smoker Physical Exam Const: COMMON NORMALS: no acute distress, patient oriented x3 and healthy appearing HENMT: COMMON NORMALS: normocephalic HEAD & SCALP: normocephalic OTHER: hematoma to right forehead Eye: COMMON NORMALS: Equal, round and reactive pupils present and EOMs intact bilaterally PUPIL: Yes Equal, round and reactive pupils present Neck/C-Spine: COMMON NORMALS: full ROM and supple Chest: COMMONS NORMALS: normal inspection of the chest and normal palpation of entire chest wall Resp: COMMON NORMALS: normal respiratory effort, No retractions, No use of accessory muscles and clear to auscultation bilaterally AUSCULTATION: clear to auscultation bilaterally Cardio: COMMON NORMALS: regular rate, regular rhythm and No murmurs present (Cardio) RATE: regular rate RHYTHM: regular rhythm GI: COMMON NORMALS: Normal to inspection, nondistended, normoactive bowel sounds present, Soft to palpation, non-tender and no masses PALPATION: Yes Soft to palpation Extremity: COMMON NORMALS: full ROM Neuro: COMMON NORMALS: patient oriented x3, moves all extremities and no focal motor deficits Psych: COMMON NORMALS: mental status grossly normal, Normal thought process present and cooperative THOUGHT PROCESS: Normal thought process present Skin: COMMON NORMALS: no rashes or lesions noted NARRATIVE SKIN EXAM: 2large skin tears to right arm GENERAL SKIN EXAM: no rashes or lesions noted Course Vital Signs: Vital signs: Vital Signs Temperature 97.7 F 03/09/22 03:47 Pulse Rate 70 03/09/22 03:47 Respiratory Rate 18 03/09/22 03:47 Blood Pressure 117/75 03/09/22 03:47 Pulse Oximetry 95 03/09/22 03:47 Oxygen Delivery Me thod 03/09/22 03:47 MDM - Fall Medical Decision Making Patient presents here with facial fracture from a fall she has no signs of jaw fracture on exam head CT showed a possible metastatic tumor I did inform her of this we will get her follow-up with ENT along with oncology. Lab Data Radiology Impressions Cervical Spine CT 03/09/22 03:48 IMPRESSION: No cervical spine fracture. Head CT 03/09/22 03:48 IMPRESSION: 1. No acute infarct or hemorrhage. 2. No calvarial or skull base fracture. 3. Mild parenchymal atrophy and chronic small vessel disease. 4. 2.3 cm lesion of the right temporal lobe which could be metastatic. Consider further evaluation MRI. 5. There is a fracture of the right zygomatic arch. 6. There are fractures of the anterior and lateral alicea of the right maxillary sinus. 7. Nondisplaced fracture of the floor of the right orbit. 8. Nondisplaced fracture of the lateral wall of the right orbit. Chest X-Ray 03/09/22 04:25 IMPRESSION: No acute disease. Discharge Plan Discharge Patient Disposition: Home Clinical Impression: Fall, Facial bone fracture, Skin tear Condition: Stable Prescriptions: New hydrocodone-acetaminophen 5-325 mg tablet 1 tab PO Q6H PRN (Reason: pain) Qty: 14 0RF No Action ziprasidone HCl 40 mg capsule 40 mg PO BID Rx Instructions: give with food (meal/snack) tolterodine 4 mg capsule,extended release 24hr 4 mg PO DAILY carbamazepine 300 mg capsule, ER multiphase 12 hr 300 mg PO BID montelukast 10 mg tablet 10 mg PO DAILY trazodone 50 mg tablet 50 mg PO DAILY duloxetine 30 mg capsule,delayed release(DR/EC) 30 mg PO DAILY Benadryl 25 mg Capsule 25 mg PO QPM Euthyrox 125 mcg Tablet 125 mcg PO DAILY Advair HFA 230-21 mcg/actuation HFA aerosol inhaler 2 puff INHALATION DAILY PRN (Reason: Shortness Of Breath) Discharge Orders: Discharge ED (Routine); Ordered 03/09/22 Ordered By: Lisa Muse Referrals: Daria Colindres FNP [Primary Care Provider] - Patrick Crum MD [Physician] - 1-3 days Reinaldo Raza MD [Hospitalist] - 1-3 days Discharge Diet: Advance as tolerated Discharge Activity: Resume usual activity Patient Instructions: Facial Fracture (ED), Opioid Safety Coding Level of Care Code ED Color Checker Roving Or Yarn for Chg Fwd Exam Comprehensive
--- NOTE | 2022-03-09 04:25 | XRR_ITS ---
PROCEDURE INFORMATION: Exam: XR Chest Exam date and time: 03/09/2022 4:31 AM Age: 81 years old Clinical indication: Patient HX: C/O cough. History of copd. TECHNIQUE: Imaging protocol: Radiologic exam of the chest. Views: 1 view. COMPARISON: CR XR chest 1V [id number] 08/15/2018 6:46 AM FINDINGS: Lungs: Calcified pulmonary nodule/nodules, consistent with prior granulomatous disease. Pleural spaces: Unremarkable. No pleural effusion. No pneumothorax. Heart/Mediastinum: Unremarkable. No cardiomegaly. Bones/joints: Unremarkable. XR/XR chest 1V portable [id number] IMPRESSION: No acute disease.
[2022-03-09 05:16] VITALS: BP 134/71; PULSE 68; RESP 21; O2SAT 96
--- NOTE | 2022-03-09 09:46 | DCPLANNER ---
Addendum entered by Lulu Avila 04/04/22 12:31: appointment cancelled Addendum entered by Lulu Avila 03/14/22 15:13: Patient has a follow up appointment scheduled for Sunday, April 03, 2022 at 11:[address] Kenney at ENT. Clinic will call patient with appointment information. Original Note: manager data warehousing had message to schedule a follow up appointment for patient with ENT. manager data warehousing sent patients information to the front office staff at ENT. Patients information will be printed and reviewed. Clinic will call patient with appointment information. manager data warehousing had message to refer [facility]. manager data warehousing called and spoke with Ivory, offensive coordinator, gave clinic patients information. Patients information will be printed and reviewed.
== END 2022-03-09 05:18 | disposition home or self-care (01) ==
PROVIDERS: Emergency Provider Emergency Medicine; PCP Nurse Practitioner Family
DX: S02.40EA Zygomatic fracture, right side, initial encounter for closed fracture (principal); S02.40CA Maxillary fracture, right side, initial encounter for closed fracture; S02.31XA Fracture of orbital floor, right side, initial encounter for closed fracture; S02.841A Fracture of lateral orbital wall, right side, initial encounter for closed fracture; S41.111A Laceration without foreign body of right upper arm, initial encounter; J44.9 Chronic obstructive pulmonary disease, unspecified; Z85.41 Personal history of malignant neoplasm of cervix uteri; E78.5 Hyperlipidemia, unspecified; F17.210 Nicotine dependence, cigarettes, uncomplicated; W01.0XXA Fall on same level from slipping, tripping and stumbling without subsequent striking against object, initial encounter
CPT/HCPCS: 70450; 71045; 72125; 99284

== ENCOUNTER → 2022-03-20 07:48 | Outpatient (BNVA) | payer MEDICARE, MEDICAID, SELFPAY | PROVIDERS: PCP Nurse Practitioner Family; Visit Provider Thoracic Surgery (Cardiothoracic Vascular Surgery) | DX: I96 Gangrene, not elsewhere classified (principal); L98.492 Non-pressure chronic ulcer of skin of other sites with fat layer exposed | CPT/HCPCS: 97597; 97598; 99213; A6021 ==

== ENCOUNTER → 2022-03-27 08:48 | Outpatient (BNVA) | payer MEDICARE, MEDICAID, SELFPAY | PROVIDERS: PCP Nurse Practitioner Family; Visit Provider Thoracic Surgery (Cardiothoracic Vascular Surgery) | DX: S41.111D Laceration without foreign body of right upper arm, subsequent encounter (principal); W19.XXXD Unspecified fall, subsequent encounter | CPT/HCPCS: 97597; 97598 ==

== ENCOUNTER → 2022-04-02 08:58 | Outpatient (BNVA) | payer MEDICARE, MEDICAID, SELFPAY | PROVIDERS: PCP Nurse Practitioner Family; Visit Provider Thoracic Surgery (Cardiothoracic Vascular Surgery) | DX: Z09 Encounter for follow-up examination after completed treatment for conditions other than malignant neoplasm (principal) | CPT/HCPCS: 99212 ==

== ENCOUNTER 2022-04-13 16:22 | Emergency (ER) | payer MEDICARE, MEDICAID, SELFPAY ==
[2022-04-13 16:25] VITALS: BP 120/70; PULSE 105; RESP 18; TEMP 36.7; O2SAT 96
--- NOTE | 2022-04-13 16:51 | XRR_ITS ---
PROCEDURE INFORMATION: Exam: XR Chest Exam date and time: 04/13/2022 4:58 PM Age: 81 years old Clinical indication: Dyspnea; Additional info: SOB TECHNIQUE: Imaging protocol: Radiologic exam of the chest. Views: 1 view. COMPARISON: CR (CHEST, ) 03/09/2022 4:31 AM FINDINGS: Lungs: Left lower lobe atelectasis versus infiltrate. Pleural spaces: Unremarkable. No pleural effusion. No pneumothorax. Heart/Mediastinum: Unremarkable. No cardiomegaly. Bones/joints: Unremarkable. XR/XR chest 1V portable [id number] IMPRESSION: Left lower lobe atelectasis versus infiltrate.
[2022-04-13 18:06] LABS: Basophils % 0.3 %; Eosinophils # 0.2 10^3/uL (0.0-0.8); Eosinophils % 2.3 %; Hematocrit 42.4 % (37.0-47.0); Hemoglobin 13.6 g/dL (11.5-15.3); Lymphocytes # 1.7 10^3/uL (0.8-4.8); Lymphocytes % 22.2 %; Mean Corpuscular HGB Conc 32.1 g/dL (30.0-36.0); Mean Corpuscular Hemoglobin 29.1 pg (28.0-34.0); Mean Corpuscular Volume 90.8 fl (81-99); Mean Platelet Volume 9.9 fL (7.4-10.4); Monocytes # 0.7 10^3/uL (0.2-0.9); Monocytes % 8.5 %; Neutrophils # 5.08 10^3/uL (1.8-7.7); Neutrophils % 66.3 %; Nucleated Red Blood Cells % 0 %; Platelet Count 203 10^3/cmm (130-400); Red Blood Count 4.67 10^6/uL (4.1-5.3); Red Cell Distribution Width 13.3 % (12.1-15.1); White Blood Count 7.7 10^3/uL (4.0-10.0)
[2022-04-13 18:37] LABS: Alanine Aminotransferase 12 U/L (0-33); Albumin Level 4.2 g/dL (3.5-5.2); Alkaline Phosphatase 112 U/L (35-105); Anion Gap 15.2 (5-19); Aspartate Amino Transferase 16 U/L (0-32); Blood Urea Nitrogen 21 mg/dL (8-23); Calcium 9.6 mg/dL (8.5-10.5); Carbon Dioxide 22 mmol/L (22-29); Chloride 107 mmol/L (98-107); Globulin 2.5 g/dL (1.3-4.6); Glucose 118 mg/dL (65-115); NT Pro B Type Natriuretic Pept 95 pg/mL (0-450); Osmolality Calculated 294 mOsm/kg (285-295); Potassium 4.2 mmol/L (3.5-5.1); Sodium 140 mmol/L (136-145); Total Bilirubin 0.2 mg/dL (0.15-1.2); Total Protein 6.7 g/dL (6.6-8.7)
--- NOTE | 2022-04-13 20:52 | ED_ITS ---
HPI - SOB/Dyspnea General: Chief Complaint: Shortness of Breath/Dyspnea Stated Complaint: sob Time Seen by Provider: 04/13/22 20:52 History of Present Illness: HPI Narrative: Ms Sanford is an 81-year-old lady with history of tobaccoism and COPD presenting to the emergency department due to generalized illness and fatigue with shortness of breath. She is felt more fatigued over the past few days and still has slept more. She endorses increased shortness of breath and dyspnea on exertion starting earlier today. Denies associated chest pain. Denies other associated infectious symptoms. Intensity symptoms moderate to severe. Course has worsened. No other specific changes in health, exacerbating, or alleviating factors identified. Pertinent past history: COPD Onset (ago): day(s) Timing: progressively worsening Severity: severe Exacerbating factors: exertion Relieving factors: nothing Known history of: COPD Associated symptoms: Reports cough and other; Deny fever(s) or vomiting Review of Systems General: Reports: 10 or more systems reviewed and unremarkable except in HPI and below Const: Denies: fever(s) GI: Denies: vomiting PFSH ED PFSH: Medical History Bipolar disorder Cervical cancer COPD (chronic obstructive pulmonary disease) Hyperlipidemia Social History Smoking and tobacco status: current every day smoker Physical Exam Const: COMMON NORMALS: alert GENERAL APPEARANCE: cooperative, well developed and ill appearing HENMT: COMMON NORMALS: normocephalic and atraumatic HEAD & SCALP: norm ocephalic and atraumatic THROAT: posterior oropharynx normal Eye: COMMON NORMALS: conjunctivae normal CONJUNCTIVA: Yes conjunctivae normal SCLERA: sclerae normal Neck/C-Spine: COMMON NORMALS: supple GENERAL: Yes trachea midline Resp: EFFORT & INSPECTION: Yes tachypneic AUSCULTATION: wheezes and diminis hed lung sounds Cardio: COMMON NORMALS: regular rhythm RATE: tachycardic RHYTHM: regular rhythm GI: COMMON NORMALS: Soft to palpation PALPATION: Yes Soft to palpation and No Tenderness to palpation present (GI) PERCUSSION: normal to percussion Extremity: NARRATIVE EXTREMITY EXAM: Clubbing of fingers GENERAL: Yes normal exam except as noted and No edema Neuro: COMMON NORMALS: moves all extremities SENSORIUM/ORIENTATION: Yes alert and No Orientation impaired Psych: COMMON NORMALS: mental status grossly normal and Normal thought process present THOUGHT PROCESS: Normal thought process present Course Vital Signs: Vital signs: Vital Signs Temperature 98.1 F 04/13/22 16:25 Pulse Rate 88 04/13/22 21:20 Respiratory Rate 18 04/13/22 21:20 Blood Pressure 120/70 04/13/22 16:25 Pulse Oximetry 95 04/13/22 21:20 Oxygen Delivery Me thod 04/13/22 21:20 MDM - SOB/Dyspnea Medical Decision Making 81-year-old lady presenting due to worsening shortness of breath. She does have a history of COPD which is on clinical exam it is severe at baseline. No associated chest pain. Patient is nontoxic. Labs notable for no leukocytosis, normal hemoglobin. Metabolic panel without significant derangement of electrolytes, creatinine and other findings are similar to prior. Chest x-ray with question left lower lobe infiltrate. Laboratory studies and x-ray have been obtained prior to my valuation of the patient given ED volume. When I saw the patient I am concerned about her reported angry somnolence as well as severe baseline disease. She does feel significantly proved with DuoNeb, steroids, and small fluid bolus. However, I feel that additional evaluation is required. I ordered viral testing, additional blood work, and EKG which the patient declined. I did review prior cardiac stress testing and echocardiogram. Given patient clinical testing to potentially rule out life-threatening decompensation of severe underlying lung disease she will leave AMA. She understands she may return to the emergency room at that time. I do not believe that she has any evidence of impairments and acne that the patient has capacity to make healthcare decisions. Family expressed frustration about the patient to have incised against medical at this point however as previously stated patient has evidence of severe COPD and only only a small change could potentially lead to emergent findings requiring hospitalization which the patient does not wish to have evaluated. Plan to treat with antibiotics and COPD exacerbation treatment. The results of ED evaluation were discussed with the patient including prescriptions and/or symptomatic cares (if applicable) including appropriate and responsible use, followup plan, and return precautions. The patient verbalized understanding and felt safe for discharge. Medical Records I reviewed the patient's medical records. Lab Data I reviewed the patient's lab results. 04/13/22 17:54 04/13/22 17:54 Labs/Radiology: Radiology Impressions Chest X-Ray 04/13/22 16:51 IMPRESSION: Left lower lobe atelectasis versus infiltrate. Laboratory Results WBC 7.7 10^3/uL (4.0-10.0) 04/13/22 17:54 RBC 4.67 10^6/uL (4.1-5.3) 04/13/22 17:54 Hgb 13.6 g/dL (11.5-15.3) 04/13/22 17:54 Hct 42.4 % (37.0-47.0) 04/13/22 17:54 MCV 90.8 fl (81-99) 04/13/22 17:54 MCH 29.1 pg (28.0-34.0) 04/13/22 17:54 MCHC 32.1 g/dL (30.0-36.0) 04/13/22 17:54 RDW 13.3 % (12.1-15.1) 04/13/22 17:54 Plt Count 203 10^3/cmm (130-400) 04/13/22 17:54 MPV 9.9 fL (7.4-10.4) 04/13/22 17:54 Neut % (Auto) 66.3 % 04/13/22 17:54 Lymph % (Auto) 22.2 % 04/13/22 17:54 [place] % (Auto) 8.5 % 04/13/22 17:54 Eos % (Auto) 2.3 % 04/13/22 17:54 Baso % (Auto) 0.3 % 04/13/22 17:54 Neut # (Auto) 5.08 10^3/uL (1.8-7.7) 04/13/22 17:54 Lymph # (Auto) 1.7 10^3/uL (0.8-4.8) 04/13/22 17:54 [place] # (Auto) 0.7 10^3/uL (0.2-0.9) 04/13/22 17:54 Eos # (Auto) 0.2 10^3/uL (0.0-0.8) 04/13/22 17:54 Baso # (Auto) 0.0 10^3/uL (0.0-0.1) 04/13/22 17:54 Nucleated RBC % (auto) 0 % 04/13/22 17:54 Nucleated RBCs # 0.0 /100WBC 04/13/22 17:54 Sodium 140 mmol/L (136-145) 04/13/22 17:54 Potassium 4.2 mmol/L (3.5-5.1) 04/13/22 17:54 Chloride 107 mmol/L (98-107) 04/13/22 17:54 Carbon Dioxide 22 mmol/L (22-29) 04/13/22 17:54 Anion Gap 15.2 (5-19) 04/13/22 17:54 BUN 21 mg/dL (8-23) 04/13/22 17:54 Creatinine 1.4 mg/dL (0.5-0.9) H 04/13/22 17:54 GFR Calculation Not Reportable 04/13/22 17:54 Glucose 118 mg/dL (65-115) H 04/13/22 17:54 Calculated Osmolality 294 mOsm/kg (285-295) 04/13/22 17:54 Calcium 9.6 mg/dL (8.5-10.5) 04/13/22 17:54 Total Bilirubin 0.2 mg/dL (0.15-1.2) 04/13/22 17:54 AST 16 U/L (0-32) 04/13/22 17:54 ALT 12 U/L (0-33) 04/13/22 17:54 Alkaline Phosphatase 112 U/L (35-105) H 04/13/22 17:54 NT-Pro-B Natriuret Pep 95 pg/mL (0-450) 04/13/22 17:54 Total Protein 6.7 g/dL (6.6-8.7) 04/13/22 17:54 Albumin 4.2 g/dL (3.5-5.2) 04/13/22 17:54 Globulin 2.5 g/dL (1.3-4.6) 04/13/22 17:54 Discharge Plan Discharge Patient Disposition: Left Against Medical Advice Clinical Impression: Breath shortness, Pneumonia Condition: Stable Prescriptions: New albuterol sulfate 90 mcg/actuation HFA aerosol inhaler 2 inh inhalation Q4H PRN (Reason: shortness of breath or wheezing) Qty: 8.5 0RF amoxicillin-pot clavulanate 875-125 mg tablet 1 tab PO BID Qty: 20 0RF No Action ziprasidone HCl 40 mg capsule 40 mg PO BID Rx Instructions: give with food (meal/snack) tolterodine 4 mg capsule,extended release 24hr 4 mg PO DAILY carbamazepine 300 mg capsule, ER multiphase 12 hr 300 mg PO BID montelukast 10 mg tablet 10 mg PO DAILY trazodone 50 mg tablet 50 mg PO DAILY duloxetine 30 mg capsule,delayed release(DR/EC) 30 mg PO DAILY Benadryl 25 mg Capsule 25 mg PO QPM Euthyrox 125 mcg Tablet 125 mcg PO DAILY Advair HFA 230-21 mcg/actuation HFA aerosol inhaler 2 puff INHALATION DAILY PRN (Reason: Shortness Of Breath) hydrocodone-acetaminophen 5-325 mg tablet 1 tab PO Q6H PRN (Reason: pain) Qty: 14 0RF Referrals: Daria Colindres FNP [Primary Care Provider] - Discharge Diet: Usual diet Discharge Activity: Increase activity as tolerated Patient Instructions: COPD (Chronic Obstructive Pulmonary Disease) (ED), Pneumonia (ED) Activity Restrictions/Additional Instructions: Thank you for visiting the emergency department. You were seen and evaluated for shortness of breath. Without completing a more thorough evaluation I am unable to rule out potentially life-threatening conditions. You are choosing to leave AGAINST MEDICAL ADVICE. I will prescribe steroids and antibiotics. Please also use your albuterol metered-dose inhaler 2 puffs every 4 hours for 24 hours followed by 2 puffs every 6 hours for 24 hours followed by 2 puffs every 8 hours for 24 hours and then return to the normal schedule. You may return to an emergency department at anytime for anything that you are concerned about and feel needs emergency department evaluation. 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
[2022-04-13] MEDS: ipratropium-albuterol 3 mL Neb INHALATION (21:17)
[2022-04-13 21:20] VITALS: PULSE 88; RESP 18; O2SAT 95
== END 2022-04-13 22:00 | disposition left against medical advice (07) ==
PROVIDERS: Emergency Provider Emergency Medicine; PCP Nurse Practitioner Family
DX: J44.0 Chronic obstructive pulmonary disease with (acute) lower respiratory infection (principal); J18.9 Pneumonia, unspecified organism; Z53.21 Procedure and treatment not carried out due to patient leaving prior to being seen by health care provider; E78.5 Hyperlipidemia, unspecified; F17.210 Nicotine dependence, cigarettes, uncomplicated
CPT/HCPCS: 36415; 71045; 80053; 83880; 85025; 94640; 99285

== ENCOUNTER 2022-06-08 23:59 | Emergency (ER) | payer MEDICARE, MEDICAID, SELFPAY ==
[2022-06-09 00:03] VITALS: BP 122/71; PULSE 70; RESP 17; TEMP 36.5; O2SAT 94; BMI 25.6
--- NOTE | 2022-06-09 00:09 | ECG_ITS ---
[facility] Test Date: 2022-06-09 Pat Name: Maxine Sanford Department: Room: Gender: Female Program Evaluation Consultant: : 1940 Requested By: Kevin Almanzar Order Number: [id number] Kathryn MD: YAS RIOS Measurements Intervals [place] Rate: 68 P: 61 KS: 198 QRS: -12 QRSD: 152 T: 69 QT: 447 QTc: 476 Interpretive Statements SINUS RHYTHM LEFT BUNDLE BRANCH BLOCK [120+ ms QRS DURATION, 80+ ms Q/S IN V1/V2, 85+ ms R IN I/aVL/V5/V6] Compared to ECG 05/01/2019 17:50:56 Left bundle-branch block now present Sinus arrhythmia no longer present Electronically Signed On 06-09-2022 23:37:13 CDT by YAS RIOS [email or web address]
--- NOTE | 2022-06-09 00:12 | XRR_ITS ---
PROCEDURE INFORMATION: Exam: XR Chest Exam date and time: 06/09/2022 12:20 AM Age: 81 years old Clinical indication: Shortness of breath; Additional info: SOB TECHNIQUE: Imaging protocol: Radiologic exam of the chest. Views: 1 view. COMPARISON: CR XR chest 1V portable [id number] 04/13/2022 4:58 PM FINDINGS: Lungs: Unremarkable. No consolidation. Mild diffuse reticular changes of the interstitium. Pleural spaces: Unremarkable. No pleural effusion. No pneumothorax. Heart/Mediastinum: Unremarkable. No cardiomegaly. Bones/joints: Unremarkable. XR/XR chest 1V portable [id number] IMPRESSION: No acute findings.
[2022-06-09 01:07] VITALS: PULSE 64; RESP 20; O2SAT 94
[2022-06-09] MEDS: ipratropium-albuterol 3 mL Neb INHALATION (01:07)
[2022-06-09 01:10] LABS: Basophils % 0.5 %; Eosinophils # 0.2 10^3/uL (0.0-0.8); Eosinophils % 3.2 %; Hematocrit 40.7 % (37.0-47.0); Hemoglobin 12.7 g/dL (11.5-15.3); Lymphocytes # 1.1 10^3/uL (0.8-4.8); Mean Corpuscular HGB Conc 31.2 g/dL (30.0-36.0); Mean Corpuscular Hemoglobin 28.7 pg (28.0-34.0); Mean Corpuscular Volume 91.9 fl (81-99); Mean Platelet Volume 9.5 fL (7.4-10.4); Monocytes # 0.5 10^3/uL (0.2-0.9); Monocytes % 8.2 %; Neutrophils % 69.8 %; Nucleated Red Blood Cells % 0 %; Platelet Count 294 10^3/cmm (130-400); Red Blood Count 4.43 10^6/uL (4.1-5.3); Red Cell Distribution Width 13.1 % (12.1-15.1); White Blood Count 6.6 10^3/uL (4.0-10.0)
[2022-06-09 01:24] LABS: ABG PCO2 40.8 mmHg (35-45); ABG PH Result 7.43 (7.35-7.45); Arterial Blood Gas Hematocrit 39.3 % (37-47); Base Excess ABG 2.8 mmol/L (-2.0-2.0); Blood Gas Sample Site Brachial, right; Blood Gas Sample Type Arterial; Carboxyhemoglobin 1.2 %THgb (0.4-20.1); HCO3 ABG 27.3 mmol/L (22-26); HGB O2 Sat 91.7 % (95-100); Methemoglobin 0.3 % (0.4-1.5); Oxygen Device NC; Total Hemoglobin 12.8 g/dL (12-16)
[2022-06-09 01:42] LABS: Alanine Aminotransferase 78 U/L (0-33); Albumin Level 3.2 g/dL (3.5-5.2); Alkaline Phosphatase 127 U/L (35-105); Anion Gap 16.5 (5-19); Aspartate Amino Transferase 39 U/L (0-32); Blood Urea Nitrogen 19 mg/dL (8-23); Calcium 9.7 mg/dL (8.5-10.5); Carbon Dioxide 26 mmol/L (22-29); Chloride 100 mmol/L (98-107); Globulin 3.2 g/dL (1.3-4.6); Glucose 109 mg/dL (65-115); NT Pro B Type Natriuretic Pept 155 pg/mL (0-450); Osmolality Calculated 289 mOsm/kg (285-295); Potassium 4.5 mmol/L (3.5-5.1); Sodium 138 mmol/L (136-145); Total Bilirubin 0.2 mg/dL (0.15-1.2); Total Protein 6.4 g/dL (6.6-8.7)
[2022-06-09 01:55] LABS: Lactic Sepsis W/Reflex 0.7 mmol/L (0.5-2.2)
[2022-06-09 02:55] VITALS: BP 116/76; PULSE 71; RESP 20; O2SAT 94
[2022-06-09 03:00] VITALS: BP 101/68; PULSE 73; RESP 21; O2SAT 93
[2022-06-09 03:30] VITALS: BP 102/67; PULSE 72; RESP 18; O2SAT 93
--- NOTE | 2022-06-09 04:36 | PC.NURSE ---
Patient sent home with 30mL of Mineral Oil, 30mL of Milk of Mag, and 45mL of Lactulose per Dr Kuhn's orders.
--- NOTE | 2022-06-09 05:14 | ED_ITS ---
HPI - SOB/Dyspnea General: Chief Complaint: Shortness of Breath/Dyspnea Stated Complaint: SOB Time Seen by Provider: 06/09/22 00:02 Source: patient and family History of Present Illness: HPI Narrative: 81-year-old female with a history of COPD. She presents with shortness of breath. She has some mild dementia. Her family arrives a bit later and gives some more history. She has used her nebulizer treatments without much improv ement. She has had a cough with some sputum production. No fever. There is a loose history of being choked on some sputum prior to dialing 911 which caused an increase in shortness of breath. She arrives breathing room air, and looking comfortable. MD elicited complaint: shortness of breath Pertinent past history: COPD Onset (ago): hour(s) Context: other Timing: constant Exacerbating factors: lying flat, exertion and coughing Relieving factors: oxygen Known history of: COPD Associated symptoms: Reports chest congestion and cough; Deny abdominal pain, chest pain, diaphoresis, dizziness, fever(s), hemoptysis or vomiting Treatment prior to arrival: oxygen Related Data: Home oxygen amount: none Review of Systems Const: Denies: fever(s) or diaphoresis ENMT: Denies: throat pain Card: Denies: chest pain Resp: Reports: dyspnea, productive cough and chest congestion; Denies: hemoptysis GI: Denies: abdominal pain or vomiting Neuro: Denies: dizziness PFSH ED PFSH: Medical History Bipolar disorder Cervical cancer COPD (chronic obstructive pulmonary disease) Hyperlipidemia Social History Smoking and tobacco status: current every day smoker Physical Exam Const: COMMON NORMALS: no acute distress GENERAL APPEARANCE: cooperative; not ill appearing and not frail appearing HENMT: COMMON NORMALS: normocephalic, atraumatic and Normal external nose present HEAD & SCALP: normocephalic and atraumatic FACE & SINUS: normal facial exam and face symmetric NOSE: Normal external nose present Eye: COMMON NORMALS: Equal, round and reactive pupils present and EOMs intact bilaterally PUPIL: Yes Equal, round and reactive pupils present Neck/C-Spine: GENERAL: Yes trachea midline Chest: CHEST: Yes Symmetrical chest wall rise Resp: COMMON NORMALS: normal respiratory effort, No retractions and No use of accessory muscles AUSCULTATION: rhonchi and wheezes Cardio: COMMON NORMALS: regular rate and regular rhythm RATE: regular rate RHYTHM: regular rhythm GI: COMMON NORMALS: Normal to inspection, nondistended, normoactive bowel sounds present Extremity: COMMON NORMALS: no pedal edema Neuro: ELIJAH COMA SCALE: document GCS findings Gibson coma scale eye opening: Spontaneous Elijah coma scale verbal response: Orientated Elijah coma scale motor response: Obey commands Gibson coma scale total score: 15 SENSORY EXAM: Yes extremities (intact) Psych: COMMON NORMALS: speech normal SPEECH: Yes normal speech Skin: COMMON NORMALS: no rashes or lesions noted GENERAL SKIN EXAM: no rashes or lesions noted Course Vital Signs: Vital signs: Vital Signs Temperature 97.7 F 06/09/22 00:03 Pulse Rate 72 06/09/22 03:30 Respiratory Rate 18 06/09/22 03:30 Blood Pressure 102/67 06/09/22 03:30 Pulse Oximetry 93 06/09/22 03:30 Oxygen Delivery Me thod 06/09/22 03:30 Oxygen Flow Rate 2 06/09/22 03:30 MDM - SOB/Dyspnea Medical Decision Making Patient is breathing comfortably on room air. She is not retaining significant CO2 on blood gas testing. Her BNP is 155. Her chest x-ray is read as negative. White blood cell count is 6. pH is 7.43. She is improved after DuoNeb treatment and Solu-Medrol here. Steroids and nebulizer treatments will be continued at home as well as antibiotics with a change in sputum. They Return if worsening symptoms. Lab Data 06/09/22 00:55 06/09/22 00:55 Labs/Radiology: Radiology Impressions Chest X-Ray 06/09/22 00:12 IMPRESSION: No acute findings. Laboratory Results WBC 6.6 10^3/uL (4.0-10.0) 06/09/22 00:55 RBC 4.43 10^6/uL (4.1-5.3) 06/09/22 00:55 Hgb 12.7 g/dL (11.5-15.3) 06/09/22 00:55 Hct 40.7 % (37.0-47.0) 06/09/22 00:55 MCV 91.9 fl (81-99) 06/09/22 00:55 MCH 28.7 pg (28.0-34.0) 06/09/22 00:55 MCHC 31.2 g/dL (30.0-36.0) 06/09/22 00:55 RDW 13.1 % (12.1-15.1) 06/09/22 00:55 Plt Count 294 10^3/cmm (130-400) 06/09/22 00:55 MPV 9.5 fL (7.4-10.4) 06/09/22 00:55 Neut % (Auto) 69.8 % 06/09/22 00:55 Lymph % (Auto) 16.0 % 06/09/22 00:55 [place] % (Auto) 8.2 % 06/09/22 00:55 Eos % (Auto) 3.2 % 06/09/22 00:55 Baso % (Auto) 0.5 % 06/09/22 00:55 Neut # (Auto) 4.60 10^3/uL (1.8-7.7) 06/09/22 00:55 Lymph # (Auto) 1.1 10^3/uL (0.8-4.8) 06/09/22 00:55 [place] # (Auto) 0.5 10^3/uL (0.2-0.9) 06/09/22 00:55 Eos # (Auto) 0.2 10^3/uL (0.0-0.8) 06/09/22 00:55 Baso # (Auto) 0.0 10^3/uL (0.0-0.1) 06/09/22 00:55 Nucleated RBC % (auto) 0 % 06/09/22 00:55 Nucleated RBCs # 0.0 /100WBC 06/09/22 00:55 Specimen Type Arterial 06/09/22 01:11 Sample Site Brachial, right 06/09/22 01:11 ABG pH 7.43 (7.35-7.45) 06/09/22 01:11 ABG pCO2 40.8 mmHg (35-45) 06/09/22 01:11 ABG pO2 63.0 mmHg (80.0-100.0) L 06/09/22 01:11 ABG HCO3 27.3 mmol/L (22-26) H 06/09/22 01:11 ABG Base Excess 2.8 mmol/L (-2.0-2.0) H 06/09/22 01:11 Levy Test N/a 06/09/22 01:11 Hematocrit 39.3 % (37-47) 06/09/22 01:11 Hgb O2 Saturation 91.7 % (95-100) L 06/09/22 01:11 Carboxyhemoglobin 1.2 %THgb (0.4-20.1) 06/09/22 01:11 Methemoglobin 0.3 % (0.4-1.5) L 06/09/22 01:11 Total Hemoglobin 12.8 g/dL (12-16) 06/09/22 01:11 O2 Delivery Device Nc 06/09/22 01:11 O2 Liters/Min 2.0 % 06/09/22 01:11 FiO2 28.0 % 06/09/22 01:11 Microsoft Office Instructor ID Alewe 06/09/22 01:11 Sodium 138 mmol/L (136-145) 06/09/22 00:55 Potassium 4.5 mmol/L (3.5-5.1) 06/09/22 00:55 Chloride 100 mmol/L (98-107) 06/09/22 00:55 Carbon Dioxide 26 mmol/L (22-29) 06/09/22 00:55 Anion Gap 16.5 (5-19) 06/09/22 00:55 BUN 19 mg/dL (8-23) 06/09/22 00:55 Creatinine 1.3 mg/dL (0.5-0.9) H 06/09/22 00:55 GFR Calculation Not Reportable 06/09/22 00:55 Glucose 109 mg/dL (65-115) 06/09/22 00:55 Calculated Osmolality 289 mOsm/kg (285-295) 06/09/22 00:55 Lactic Acid 0.7 mmol/L (0.5-2.2) 06/09/22 00:55 Calcium 9.7 mg/dL (8.5-10.5) 06/09/22 00:55 Total Bilirubin 0.2 mg/dL (0.15-1.2) 06/09/22 00:55 AST 39 U/L (0-32) H 06/09/22 00:55 ALT 78 U/L (0-33) H 06/09/22 00:55 Alkaline Phosphatase 127 U/L (35-105) H 06/09/22 00:55 NT-Pro-B Natriuret Pep 155 pg/mL (0-450) 06/09/22 00:55 Total Protein 6.4 g/dL (6.6-8.7) L 06/09/22 00:55 Albumin 3.2 g/dL (3.5-5.2) L 06/09/22 00:55 Globulin 3.2 g/dL (1.3-4.6) 06/09/22 00:55 Discharge Plan Discharge Patient Disposition: Home Clinical Impression: Acute exacerbation of chronic obstructive airways disease Condition: Stable Prescriptions: New Medrol (Emanuel) 4 mg tablets,dose pack See Rx Instructions .ROUTE .COMPLEX Qty: 21 0RF Rx Instructions: orally per package directions doxycycline hyclate 100 mg capsule 100 mg PO BID 7 Days Qty: 14 0RF No Action ziprasidone HCl 40 mg capsule 40 mg PO BID Rx Instructions: give with food (meal/snack) tolterodine 4 mg capsule,extended release 24hr 4 mg PO DAILY carbamazepine 300 mg capsule, ER multiphase 12 hr 300 mg PO BID montelukast 10 mg tablet 10 mg PO DAILY trazodone 50 mg tablet 50 mg PO DAILY duloxetine 30 mg capsule,delayed release(DR/EC) 30 mg PO DAILY Benadryl 25 mg Capsule 25 mg PO QPM Euthyrox 125 mcg Tablet 125 mcg PO DAILY Advair HFA 230-21 mcg/actuation HFA aerosol inhaler 2 puff INHALATION DAILY PRN (Reason: Shortness Of Breath) hydrocodone-acetaminophen 5-325 mg tablet 1 tab PO Q6H PRN (Reason: pain) Qty: 14 0RF albuterol sulfate 90 mcg/actuation HFA aerosol inhaler 2 inh inhalation Q4H PRN (Reason: shortness of breath or wheezing) Qty: 8.5 0RF amoxicillin-pot clavulanate 875-125 mg tablet 1 tab PO BID Qty: 20 0RF Discharge Orders: Discharge ED (Routine); Ordered 06/09/22 Ordered By: Kevin Kuhn Referrals: Daria Colindres FNP [Primary Care Provider] - 1-3 days Activity Restrictions/Additional Instructions: Return for worsening shortness of breath despite treatment, fever greater than 100 despite 2-3 doses of antibiotics, chest pain, other concerning symptoms Use the albuterol nebulizer every 4 hours while awake for the next 48 hours, then as needed. Medication as directed. Follow up with your doctor early next week. 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
--- NOTE | 2022-06-10 05:23 | PC.NURSE ---
06/10/22 Lab reported 1 of 4 blood cultures tested positive for gram positive rods. Blood Culture results reported to Dr. Kuhn. Patient was discharged with prescription for Doxycycline. No further order at this time until the other 3 blood cultures are resulted.
== END 2022-06-09 04:35 | disposition home or self-care (01) ==
PROVIDERS: Emergency Provider Emergency Medicine; PCP Nurse Practitioner Family
DX: J44.1 Chronic obstructive pulmonary disease with (acute) exacerbation (principal); E78.5 Hyperlipidemia, unspecified; F17.210 Nicotine dependence, cigarettes, uncomplicated; Z85.41 Personal history of malignant neoplasm of cervix uteri
CPT/HCPCS: 36415; 36600; 71045; 80053; 82805; 83605; 83880; 85025; 87040; 87205; 93005; 94640; 96374; 99285; J2930